=== PATIENT | male | born 2000 | race African-American/Black ===

== ENCOUNTER 2022-12-22 14:33 | Emergency (ER) | payer OTHER, MEDICAID, SELFPAY ==
[2022-12-22 14:54] VITALS: BP 98/68; PULSE 65; RESP 16; TEMP 37.7; O2SAT 98; BMI 21.6
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
== END 2022-12-22 19:40 | disposition home or self-care (01) ==
PROVIDERS: Emergency Provider Emergency Medicine
DX: S06.0X0A Concussion without loss of consciousness, initial encounter (principal); S13.4XXA Sprain of ligaments of cervical spine, initial encounter; R51.9 Headache, unspecified; M54.2 Cervicalgia; V43.52XA Car driver injured in collision with other type car in traffic accident, initial encounter; Y93.9 Activity, unspecified; Y92.410 Unspecified street and highway as the place of occurrence of the external cause; Y99.9 Unspecified external cause status
CPT/HCPCS: 99282; 99283

== ENCOUNTER 2024-02-28 13:29 | Emergency (ER) | payer OTHER, SELFPAY ==
[2024-02-28 13:44] VITALS: BP 143/74; PULSE 62; RESP 14; TEMP 36.6; O2SAT 99; BMI 21.1
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
[2024-02-28 13:50] VITALS: BP 143/74; PULSE 62; RESP 14; TEMP 36.6; O2SAT 99
== END 2024-02-28 13:52 | disposition home or self-care (01) ==
LOC: HO.ED 13:50
PROVIDERS: Emergency Provider Emergency Medicine
DX: R51.9 Headache, unspecified (principal); M54.2 Cervicalgia
CPT/HCPCS: 99282